=== PATIENT | male | born 2000 | race Native Hawaiian/Other Pacific Islander ===

== ENCOUNTER 2024-08-19 23:52 | Emergency (ER) | payer OTHER ==
[2024-08-20 00:14] VITALS: TEMP 98.4
--- NOTE | 2024-08-20 00:46 | ED ---
Skin/Abscess/FB HPI - General Chief complaint: Skin/Abscess/Foreign Body Stated complaint: right ear pain Time Seen by Provider: 08/20/24 00:44 Source: patient, RN notes reviewed Mode of arrival: ambulatory - History of Present Illness Initial comments: 24-year-old male presenting for right ear pain x 4 days. States he was seen at urgent care in [facility] who told him he had a piece of a Q-tip stuck in his ear and performed an ear lavage. Patient states he could not tolerate ear lavage due to pain. Denies fever, cough, sore throat, nasal congestion. States he has having difficulty hearing out of his right ear. - Related Data Previous Rx's Medication Instructions Recorded Amoxicillin 875 mg PO Q12HR 7 Days #14 tablet 08/20/24 Carbamide Peroxide [Debrox Otic] 5 drops RIGHT EAR BID #15 ml 08/20/24 Allergies Allergy/AdvReac Type Severity Reaction Status Date / Time No Known Allergies Allergy Verified 08/20/24 00:14 Review of Systems ROS Statement: Those systems with pertinent positive or pertinent negative responses have been documented in the HPI. ROS Other: All systems not noted in ROS Statement are negative. Past Medical History Past Medical History: No Reported History History of Any Multi-Drug Resistant Organisms: None Reported Past Surgical History: No Surgical Hx Reported Past Psychological History: No Psychological Hx Reported Past Alcohol Use History: None Reported Past Drug Use History: None Reported General Exam General appearance: alert, in no apparent distress Head exam: Present: atraumatic, normocephalic, normal inspection Eye exam: Present: normal appearance, PERRL, EOMI. Absent: scleral icterus, conjunctival injection, periorbital swelling ENT exam: Present: normal exam, normal oropharynx, mucous membranes moist, normal external ear exam. Absent: TM's normal bilaterally (Right TM unable to be visualized due to copious amount of cerumen. No foreign body visualized. Left TM unremarkable. No mastoid erythema edema or tenderness) Respiratory exam: Present: normal lung sounds bilaterally. Absent: respiratory distress, wheezes, rales, rhonchi, stridor Cardiovascular Exam: Present: regular rate, normal rhythm, normal heart sounds. Absent: systolic murmur, diastolic murmur, rubs, gallop, clicks Neurological exam: Present: alert, oriented X3 Psychiatric exam: Present: normal affect, normal mood Skin exam: Present: warm, dry, intact, normal color. Absent: rash Course Vital Signs 08/20/24 00:08 Temperature 98.4 F Pulse Rate 95 Respiratory 18 Rate Blood Pressure 141/86 O2 Sat by Pulse 99 Oximetry Medical Decision Making - Medical Decision Making Was pt. sent in by a medical professional or institution (CAROLA Weston, DISPLAY ASSOCIATE, urgent care, hospital, or assisted...) When possible be specific @ -No Did you speak to anyone other than the patient for history (EMS, parent, family, police, friend...)? What history was obtained from this source @ -No Did you review nursing and triage notes (agree or disagree)? Why? @ -I reviewed and agree with nursing and triage notes Were old charts reviewed (outside hosp., previous admission, EMS record, old EKG, old radiological studies, urgent care reports/EKG's, assisted records)? Report findings @ -No old charts were reviewed Differential Diagnosis (chest pain, altered mental status, abdominal pain women, abdominal pain men, vaginal bleeding, weakness, fever, dyspnea, syncope, headache, dizziness, GI bleed, back pain, seizure, CVA, palpatations, mental health, musculoskeletal)? @ -Otitis media, cerumen impaction, foreign body, otitis externa EKG interpreted by me (3pts min.). @ -None X-rays interpreted by me (1pt min.). @ -None done CT interpreted by me (1pt min.). @ -None done U/S interpreted by me (1pt. min.). @ -None done What testing was considered but not performed or refused? (CT, X-rays, U/S, labs)? Why? @ -None What meds were considered but not given or refused? Why? @ -None Did you discuss the management of the patient with other professionals (professionals i.e. CAROLA Weston, DISPLAY ASSOCIATE, lab, RT, psych nurse, social services director, mushroom packer, teacher, chief digital media officer, case monitor)? Give summary @ -No Was smoking cessation discussed for >3mins.? @ -No Was critical care preformed (if so, how long)? @ -No Were there social determinants of health that impacted care today? How? (Homelessness, low income, unemployed, alcoholism, drug addiction, transportation, low edu. Level, literacy, decrease access to med. care, senior living, rehab)? @ -No Was there de-escalation of care discussed even if they declined (Discuss DNR or withdrawal of care, Hospice)? DNR status @ -No What co-morbidities impacted this encounter? (DM, HTN, Smoking, COPD, CAD, Cancer, CVA, ARF, Chemo, Hep., AIDS, mental health diagnosis, sleep apnea, morbid obesity)? @ -None Was patient admitted / discharged? Hospital course, mention meds given and route, prescriptions, significant lab abnormalities, going to OR and other pert inent info. @ -Discharge. 24-year-old male with right otalgia x 4 days. Underwent ear lavage at urgent care prior to arrival. Physical examination remarkable for copious amount of cerumen in right ear canal. Unable to visualize TM due to copious amount of cerumen. No foreign body visualized. We would not perform an additional ear lavage as patient underwent ear lavage at urgent care prior to arrival today. We will trial Debrox drops and cover with antibiotics for otitis media as TM was unable to be visualized today. Advised to follow-up with ENT next week. Patient is agreeable to plan. Appropriate return precautions discussed. Case was discussed with my ED attending Dr. Gill Undiagnosed new problem with uncertain prognosis? @ -No Drug Therapy requiring intensive monitoring for toxicity (Heparin, Nitro, Insulin, Cardizem)? @ -No Were any procedures done? @ -No Diagnosis/symptom? @ -Cerumen impaction of right ear Acute, or Chronic, or Acute on Chronic? @ -Acute Uncomplicated (without systemic symptoms) or Complicated (systemic symptoms)? @ -Uncomplicated Side effects of treatment? @ -No Exacerbation, Progression, or Severe Exacerbation? @ -No Poses a threat to life or bodily function? How? (Chest pain, [place], [place], pneumonia, PE, COPD, DKA, ARF, appy, cholecystitis, CVA, Diverticulitis, Homicidal, Suicidal, threat to staff... and all critical care pts) @ -No Disposition Clinical Impression: Right ear impacted cerumen Disposition: HOME SELF-CARE Condition: Stable Additional Instructions: Use Debrox drops as prescribed. Take amoxicillin twice daily for 7 days. Follow-up with ENT next week. Please return to the Emergency Department if symptoms worsen or any other concerns. Prescriptions: Amoxicillin 875 mg PO Q12HR 7 Days #14 tablet Carbamide Peroxide [Debrox Otic] 5 drops RIGHT EAR BID #15 ml Is patient prescribed a controlled substance at d/c from ED?: No Referrals: Emmanuel De La Paz DO [Primary Care Provider] - 1-2 days John Flores MD [STAFF PHYSICIAN] - 1-2 days Time of Disposition: 01:00
[2024-08-20 01:41] VITALS: BP 127/80; PULSE 78; RESP 20
== END 2024-08-20 01:18 | disposition home or self-care (01) ==
LOC: EC 23:52
DX: H61.21 Impacted cerumen, right ear (principal); W44.8XXA Other foreign body entering into or through a natural orifice, initial encounter
CPT/HCPCS: 99283